=== PATIENT | female | born 1955 | race Caucasian/White ===

== ENCOUNTER 2019-05-26 14:28 | Emergency (ER) | payer OTHER ==
[~2019-05-26] VITALS: Ht 162.6 cm; Wt 63.5 kg
[2019-05-26] MEDS ORDERED: ZESTRIL20 MG PO (14:44)
[2019-05-26] MEDS ORDERED: PLAVIX75 MG PO (14:45)
[2019-05-26] MEDS ORDERED: LIPITOR40 M1 PO (14:45)
[2019-05-26] MEDS ORDERED: MAGNESIUM400 MG PO (14:45)
[2019-05-26] MEDS ORDERED: NEXIUM20 M1 PO (14:45)
[2019-05-26] MEDS ORDERED: CALCIUM 1,0001 EACH PO (14:46)
[2019-05-26] MEDS ORDERED: ASPIR 8181 MG PO (14:46)
[2019-05-26] MEDS ORDERED: FLAXSEED1000 MG PO (14:46)
[2019-05-26] MEDS ORDERED: CENTRUM ADULTS1 EACH PO (14:47)
== END 2019-05-26 18:55 | disposition home or self-care (01) ==
LOC: ER 14:28
DX: R10.13 Epigastric pain (principal); R11.0 Nausea